=== PATIENT | male | born 1975 | race Two or more races ===

== ENCOUNTER 2016-07-22 21:12 | Emergency (ER) | payer OTHER ==
--- NOTE | 2016-07-22 22:24 | EDPHY ---
H & P Time Seen by Provider: 07/22/16 22:15 HPI/ROS: CHIEF COMPLAINT: Headache x1 week HISTORY OF PRESENT ILLNESS: 40-year-old male generally healthy complaining of 1 week of right occipital headache, waxing waning, not thunderclap. No peripheral paresthesia, weakness, numbness. No trauma. No major minor neck or head trauma or injury or manipulation. No visual disturbance. no gait instability. No slurred speech. no facial complaints such as paresthesia or pain. REVIEW OF SYSTEMS: A ten point review of systems was performed and is negative with the exception of the items mentioned in the HPI PAST MEDICAL & SURGICAL HISTORY: No pertinent medical or surgical history SOCIAL HISTORY: nonsmoker. No drug use. FAMILY HISTORY: No pertinent family history PHYSICAL EXAM (Prior to examination, patient consented to physical exam, hands were washed and my usual and customary physical exam procedures followed) 1) GENERAL: Well-developed, well-nourished, alert and oriented. Appears to be in no acute distress. 2) HEAD: Normocephalic, atraumatic 3) HEENT: Pupils equal, round, reactive to light bilaterally. Sclera anicteric. Nasopharynx, oropharynx, clear, no lesions. Ears bilaterally with normal tympanic membranes. 4) NECK: Full range of motion, no meningeal signs.Tender to palpation right occipital region 5) LUNGS: Clear auscultation bilaterally, no wheezes, no rhonchi, no retractions. 6) HEART: Regular rate and rhythm, no murmur, no heave, no gallop. 7) ABDOMEN: No guarding, no rebound, no focal tenderness, 8) MUSCULOSKELETAL: Moving all extremities, no focal areas of tenderness, no obvious trauma. No peripheral edema or discoloration. 9) BACK: No CVA tenderness, no midline vertebral tenderness, no fluctuance, no step-off, no obvious trauma, no visual or palpable abnormality. 10) SKIN: No rash, no petechiae. 11) NEURO: Awake, alert, and oriented to person, place and time. Answers questions appropriately. There were no obvious focal neurologic abnormalities. Normal steady gait. Upper and lower extremities bilaterally with strength 5 / 5, reflexes 2+.. DIFFERENTIAL DIAGNOSIS: In no particular order, including but not limited to subarachnoid hemorrhage, migraine headache, tension headache and infectious causes such as meningitis, pharyngitis and sinusitis. The patient understands that this diagnosis is provisional and can never be 100% accurate. Usual and customary warnings were given concerning the clinical impression and all the patient's questions were answered. The patient was instructed to return to the emergency department should her symptoms worsen or return, or develop any new symptoms, otherwise to followup as directed in discharge instructions. This is a partial list of diagnoses considered. These considerations are based on history, physical exam, past history and reassessment. Smoking Status: Former smoker Constitutional: Initial Vital Signs Temperature (C) 36.9 C 07/22/16 21:34 Heart Rate 84 07/22/16 21:34 Respiratory Rate 18 07/22/16 21:34 Blood Pressure 158/93 H 07/22/16 21:34 O2 Sat (%) 94 07/22/16 21:34 O2 Delivery Mode Room Air Allergies/Adverse Reactions: No Known Allergies Allergy (Unverified 06/03/13 14:17) Home Medications: Medication Instructions Recorded AZITHROMYCIN [Z-PACK] 500 mg PO DAILY #1 packet 07/23/16 Ibuprofen [Motrin (*)] 800 mg PO Q6 #15 tab 07/23/16 MDM/Departure - MDM Diagnostics: CT head without contrast. History: Right occipital headache. Technique: Standard noncontrast head CT protocol utilizing axial images acquired through the calvarium. Images were reconstructed down to 1.25-mm slice thickness as well. Radiation dose technique was utilized. Findings: No evidence for intracranial mass, hemorrhage, or infarct. The ventricles, sulci, and cisterns are within normal limits for the patient's age. No evidence for an extra-axial fluid collection. No evidence for skull fracture. Left frontal sinus is completely opacified. Left maxillary and most of the left ethmoid air cells are completely opacified. There is sclerosis particularly of the left frontal bone suggesting a chronic component. Impression: Left-sided sinusitis with complete opacification of the left maxillary and frontal sinus and majority of the ethmoid sinus. There is also chronic component with sclerosis. No evidence for acute intracranial abnormality. Results called and discussed with Cheri Yanez PA-C, at 07/23/2016 0:01. Dictated By: Maxwell Treviño MD CT Angiogram of the Brain Clinical Indications: Right is occipital headache. Concern for possible aneurysm or venous sinus thrombosis. Technique: CT angiogram of the brain was performed with the uneventful intravenous administration of 85 mL Isovue-370 contrast. Multiplanar reconstructions including 3D reconstructions performed and evaluated on [employer] workstation in order to better evaluate the [place] vessels. Images were manipulated by the radiologist at the computer workstation. Dose reduction techniques were utilized. Findings: Major vessels of the [place] are adequately displayed, demonstrating no evidence of aneurysm, vascular malformation, flow-limiting stenosis, or occlusion. Bilateral cavernous internal carotid arteries and vertebrobasilar system demonstrates no evidence of flow- limiting stenosis, aneurysm, occlusion or dissection. Superior sagittal sinus, transverse sinuses, and major veins demonstrate no evidence of intraluminal thrombi. Impression: Negative CT angiogram of the brain. CT Angiogram Neck With Contrast Enhancement History: Right occipital headache. Evaluate for dissection. Technique: 1.25 mm axial multidetector helical CT imaging was performed through the neck while 85 mL Isovue-370 were injected intravenously without complication. The images were then transferred to an independent workstation where multiplanar and three-dimensional reconstructions were performed by the interpreting physician and reviewed at multiple windows. Dose reduction techniques were utilized. CTA Findings: Normal branching of the great vessels. The common carotid artery, carotid bulb, and internal carotid arteries are widely patent bilaterally without evidence for dissection or stenosis. Both vertebral arteries are widely patent without significant stenosis or dissection. CT Neck: Evidence of left-sided sinus disease is seen described in the CT head without contrast report. Shotty lymphadenopathy is seen bilaterally. No pathologically enlarged lymph nodes. Impression: Normal CT angiogram of the neck without evidence for dissection or significant stenosis. Measurement of carotid stenosis is based on the residual internal carotid diameter with [place] Symptomatic Carotid Endarterectomy Trial (NASCET) based stenosis levels. Results called and discussed with Cheri Yanez PA-C, at 07/23/2016 0:18. Dictated By: Maxwell Treviño MD Images reviewed by myself ED Course/Re-evaluation: Re-evaluation with serial exams. Discussed his imaging results positive for sinusitis. Vascular studies are normal, no evidence of dissection or venous thrombus. Plan will be discharge. Started on a medication for sinusitis. Prescribed ibuprofen. Usual and customary head injury precautions and instructions provided. He feels comfortable being discharged. He remains with a nonfocal neurologic exam. - Depart Disposition: Home, Routine, Self-Care Clinical Impression: Sinusitis, acute Qualifiers: Sinusitis location: maxillary Recurrence: recurrent Qualified Code(s): J01.01 - Acute recurrent maxillary sinusitis Condition: Good Instructions: Sinusitis (ED) Additional Instructions: THANK YOU FOR YOUR VISIT TO OUR EMERGENCY DEPARTMENT (ED). YOU WERE SEEN TODAY BECAUSE OF A HEADACHE. YOU MAY HAVE HAD LAB TESTS, A CT SCAN, MRI OR EVEN A LUMBAR PUNCTURE (COMMONLY REFERRED TO A SPINAL TAP). WE CANNOT ALWAYS FIND THE EXACT CAUSE OF YOUR SYMPTOMS DURING YOUR VISIT TO THE ED. PLEASE FOLLOW UP WITH YOUR DOCTOR WITHIN 24 HOURS TO BE RECHECKED. RETURN TO THE ED IMMEDIATELY IF YOUR HEADACHE WORSENS, IF YOU DEVELOP A FEVER, NECK PAIN OR NECK STIFFNESS, OR IF YOU BECOME CONFUSED OR ABNORMALLY DROWSY. Prescriptions: AZITHROMYCIN [Z-PACK] 500 mg PO DAILY #1 packet Ibuprofen [Motrin (*)] 800 mg PO Q6 #15 tab Referrals: [facility] [Other] - 2-3 days, call for appt.
[2016-07-22] MEDS ORDERED: IOPAMIDOL (ISOVUE-370) 150 ML BTL IV ONE (23:08)
[2016-07-23 00:09] VITALS: RESP 20
[2016-07-23 00:45] VITALS: BP 134/77; PULSE 87; TEMP 98.2; O2SAT 95
== END 2016-07-23 00:46 | disposition home or self-care (01) ==
DX: J01.01 Acute recurrent maxillary sinusitis (principal); Z87.891 Personal history of nicotine dependence
CPT/HCPCS: 82947-QW; Q9967